=== PATIENT | female | born 1975 | race Caucasian/White ===

== ENCOUNTER 2016-12-12 18:12 | Observation (INO) | payer OTHER ==
[~2016-12-12] VITALS: Ht 170.2 cm; Wt 122.6 kg
[~2016-12-12 18:12] MED LIST: CARAFATE100 MG/ML PO; CELEBREX200 MG PO; CELECOXIB200 MG PO; CLEOCIN300 MG PO; DELTASONE20 M1 PO; DIFLUCAN100 MG PO; DIOVAN320 MG PO; EXCEDRIN MIGRA1 EAC3 PO; FIORICET WI1 CAPSULE PO; FIORICET,ESG1 TABLET PO; FORTAMET500 M1 PO; GLUCOPHAGE1000 MG PO; IBUPROFEN200 M1 PO; LEVAQUIN750 MG PO; LIBRAX, CLI1 CAPSULE PO; NORCO 5/3251 TABLET PO; OMEPRAZOLE40 M1 PO; RELPAX40 MG PO; ROXICODONE5 MG PO; TYLENOL WITH C1 EACH PO; ULTRAM50 MG PO; VITAMIN E400 UNIT PO
[2016-12-12 19:03] LABS: HEMATOCRIT 42.4 % (36.0-46.0); MCH 27.2 PG (29.0-34.0); MCHC 32.5 G/DL (30.0-36.0); MCV 83.5 FL (83-99); MEAN PLAT.VOLUME 10.7 uM^3 (9.5-12.4); PLATELET COUNT 321 K/uL (156-360); RBC DIS.WIDTH-CV 13.8 % (11.8-14.6); RBC DIS.WIDTH-SD 42.2 % (39-53); RED BLOOD COUNT 5.08 M/uL (3.80-5.20); WHITE BLOOD COUNT 10.1 K/uL (4.1-10.2)
[2016-12-12 19:11] LABS: CHLORIDE 104 mEq/L (99-109); SODIUM 137 mEq/L (136-147)
[2016-12-12 19:12] LABS: GLUCOSE 156 mg/dL (70-99)
[2016-12-12 19:14] LABS: ANION GAP 9 MEQ/L (2-14)
[2016-12-12 19:16] LABS: GFR ESTIMATE (CALCULATED) > 59 mL/min/
[2016-12-12 19:17] LABS: UREA NITROGEN (BUN) 8 mg/dL (9-23)
[2016-12-12 19:23] LABS: TROP-I INTERPRETATION NEGATIVE; TROPONIN-I < 0.01 ng/mL (0.0-0.30)
[2016-12-12] MEDS ORDERED: SERTRALINE HCL50 MG PO (19:57)
[2016-12-12] MEDS ORDERED: XANAX0.25 MG PO (19:57)
[2016-12-12] MEDS ORDERED: TRULICITY1.5 MG/0.5 SC (19:57)
[2016-12-12 23:07] VITALS: BP 122/70
[2016-12-13 01:13] VITALS: BP 112/59
[2016-12-13 02:32] LABS: TROP-I INTERPRETATION NEGATIVE; TROPONIN-I < 0.01 ng/mL (0.0-0.30)
[2016-12-13 04:30] VITALS: BP 108/58
[2016-12-13 09:09] VITALS: BP 128/84
[2016-12-13 09:15] LABS: D-DIMER ELISA 0.18 mg/L FEU (< 0.57)
[2016-12-13 09:36] LABS: TROP-I INTERPRETATION NEGATIVE; TROPONIN-I < 0.01 ng/mL (0.0-0.30)
[2016-12-13] MEDS ORDERED: LO-DOSE ASPIRIN81 M2 PO (10:04)
== END 2016-12-13 10:40 | disposition home or self-care (01) ==
LOC: EME 18:12 → EDOF 21:33 → 5WEST 22:28
PROVIDERS: Emergency Medicine; Internal Medicine
DX: R07.9 Chest pain, unspecified (principal); E11.9 Type 2 diabetes mellitus without complications; I10 Essential (primary) hypertension; E78.5 Hyperlipidemia, unspecified; E66.01 Morbid (severe) obesity due to excess calories; K76.0 Fatty (change of) liver, not elsewhere classified; K21.9 Gastro-esophageal reflux disease without esophagitis; F41.9 Anxiety disorder, unspecified; F43.9 Reaction to severe stress, unspecified; Z79.84 Long term (current) use of oral hypoglycemic drugs; Z82.49 Family history of ischemic heart disease and other diseases of the circulatory system; Z83.3 Family history of diabetes mellitus; Z83.49 Family history of other endocrine, nutritional and metabolic diseases; Z80.8 Family history of malignant neoplasm of other organs or systems
CPT/HCPCS: 71020; 80048; 83880; 84484; 85027; 85379; 93005; 99281; 99285; G0378; J1650; J2270

== ENCOUNTER 2017-12-16 11:03 | Day surgery (SDC) | payer OTHER ==
[~2017-12-16] VITALS: Ht 170.2 cm; Wt 122.5 kg
[~2017-12-16 11:03] MED LIST changes: +LO-DOSE ASPIRIN81 M2 PO; +OZEMPIC1 MG/0.75 SC; +PRILOSEC OTC20 MG PO; +TRULICITY1.5 MG/0.5 SC; +XANAX0.25 MG PO; +ZOLOFT100 MG PO
[2017-12-16] MEDS ORDERED: GLIPIZIDE5 MG PO (11:36)
[2017-12-16 11:43] VITALS: BP 113/66
[2017-12-16 14:48] VITALS: BP 110/79
[2017-12-16 15:31] VITALS: BP 131/83
== END 2017-12-16 15:30 | disposition home or self-care (01) ==
LOC: SDC 11:03
PROVIDERS: Podiatrist Foot & Ankle Surgery
DX: S93.125A Dislocation of metatarsophalangeal joint of left lesser toe(s), initial encounter (principal); M20.42 Other hammer toe(s) (acquired), left foot; E11.9 Type 2 diabetes mellitus without complications; I10 Essential (primary) hypertension; Z79.84 Long term (current) use of oral hypoglycemic drugs
CPT/HCPCS: 81025; 82948; C1769; J0690; J1100; J2250; J2405; J3010; S0020